=== PATIENT | male | born 1965 | race Caucasian/White ===

== ENCOUNTER 2021-01-25 09:43 | Outpatient (CLI) | payer OTHER, SELFPAY | END 2021-01-25 09:44 | disposition home or self-care (01) | LOC: CHSCOVIDVC 09:43 | PROVIDERS: PCP Internal Medicine Infectious Disease | DX: Z23 Encounter for immunization (principal) | CPT/HCPCS: 0011A; 91301 ==

== ENCOUNTER 2021-02-22 09:49 | Outpatient (CLI) | payer OTHER, SELFPAY | END 2021-02-22 09:50 | disposition home or self-care (01) | LOC: CHSCOVIDVC 09:50 | PROVIDERS: PCP Internal Medicine Infectious Disease | DX: Z23 Encounter for immunization (principal) | CPT/HCPCS: 0012A; 91301 ==